=== PATIENT | male | born 2000 ===

== ENCOUNTER 2020-09-23 12:19 | Emergency (ER) | payer SELFPAY ==
[~2020-09-23] VITALS: Ht 175.3 cm; Wt 56.8 kg
[2020-09-23 12:24] VITALS: TEMP 97.5
[2020-09-23] MEDS ORDERED: FLEXERIL 1010 MG/TAB PO (13:40)
[2020-09-23 14:11] VITALS: BP 118/69; PULSE 60
== END 2020-09-23 14:12 | disposition home or self-care (01) ==
LOC: COL.ER 12:19
DX: R51.9 Headache, unspecified (principal); M54.2 Cervicalgia; V23.9XXA Unspecified motorcycle rider injured in collision with car, pick-up truck or van in traffic accident, initial encounter